=== PATIENT | male | born 2000 | race Caucasian/White ===

== ENCOUNTER 2023-10-28 14:18 | Emergency (ER) | payer OTHER, SELFPAY ==
[2023-10-28 14:25] VITALS: BP 131/81; PULSE 100; RESP 18; TEMP 37.2; O2SAT 100
--- NOTE | 2023-10-28 14:38 | ED.URI ---
HPI - URI/Sore Throat General Chief Complaint: Upper Respiratory Infection Stated Complaint: throat/sinus Time Seen by Provider: 10/28/23 14:39 Source: patient, RN notes reviewed and old records reviewed Mode of arrival: ambulatory Limitations: no limitations History of Present Illness HPI Narrative: 23-year-old male who presents to [facility] with complaints of 1 week duration of sinus congestion,drainage, headache, some ear pressure with increased symptoms for the past 2 days. Patient reports that he now also has sore throat, fatigue and has body ache. Patient reports that he has used Mira Loma Pot, Vicks vapor Rub and also has been taking Ibuprofen. Patient reports that he has had low grade fevers. MD elicited complaint: sore throat, rhinorrhea, nasal congestion, sinus pain and other (headaches) Pertinent past history: sinusitis Severity: moderate Pain scale (0-10): 6 Treatments prior to arrival: ibuprofen and other (Mira Loma Pot and Vicks Vapor Rub) Related Data Home Medications Medication Instructions Recorded Confirmed bupropion HCl 150 mg 24 hr tablet, 150 mg PO DAILY 10/28/23 10/28/23 extended release escitalopram oxalate 10 mg tablet 10 mg PO DAILY 10/28/23 10/28/23 Allergies Allergy/AdvReac Type Severity Reaction Status Date / Time No Known Allergies Allergy Verified 10/28/23 15:01 Review of Systems Review of Systems: CONSTITUTIONAL: Reports malaise, chills, sweats, or fever. EYES: Denies visual changes, redness, or discharge. ENT: Reports rhinorrhea, congestion, sinus pain, otalgia and sore throat. CARDIOVASCULAR: Denies chest pain, palpitations, or edema. RESPIRATORY: Reports no acute cough.? Denies dyspnea. GASTROINTESTINAL: Denies abdominal pain, nausea, vomiting, diarrhea SKIN: Denies rash or itching. MUSCULOSKELETAL:Reports myalgia. NEUROLOGIC: Reports headache. All systems reviewed & are unremarkable except as noted in HPI and below PMFSH Past Medical History Medical History (Updated 10/29/23 @ 22:06 by Laura Sanchez NP) Anxiety OCD (obsessive compulsive disorder) Sinus problem Social History Social History (Updated 10/29/23 @ 22:07 by Laura Sanchez NP) Smoking status: Never smoker Alcohol intake: current Alcohol use details: social Substance use type: does not use Occupation/Education: student Gender identity (if verbalized by the patient): Male Comments At time of signature, agree with nursing past medical, surgical, social and family history. There is no relevant family history pertinent to the presenting complaint Exam Narrative: GENERAL: Well-appearing, well-nourished, and in no acute distress. HEAD: Normocephalic EYES: PERRLA, conjunctivae clear ENT: Nares clear, turbinates edematous and erythematous, yellow with blood streaks in discharge, sinus pressure and headache. Mucous membranes moist. TM pearly galarza with dull light reflex bilaterally; no tragal tenderness. Oropharynx erythematous without lesions. Tonsils not enlarged and without exudate, no drooling, no hoarseness, no trismus, uvula midline.post nasal drainage. NECK: Supple. No lymphadenopathy CHEST: Clear to auscultation, breath sounds equal. No wheezing, rhonchi, rales, or stridor. No respiratory distress, speaks in full sentences.SAO2 100% on room air HEART: Regular rate and rhythm. No murmur heard. SKIN: Warm, dry, no rash. NEURO: Alert and oriented x3. PSYCH: Normal mood and affect Course Course Emergency Course: Patient is aware of diagnosis, understands and agrees to treatment plan.? Anticipatory guidance given.? Patient agrees to follow-up as directed and is aware of reasons to seek care at the emergency department. Portions of this record may have been created with voice recognition software Level of Care: Express Care Visit Vital Signs Vital signs: Vital Signs Temperature 37.2 C 10/28/23 14:25 Pulse Rate 100 10/28/23 14:25 Respirat
== END 2023-10-28 15:30 | disposition home or self-care (01) ==
PROVIDERS: Emergency Provider Registered Nurse
DX: J01.40 Acute pansinusitis, unspecified (principal); Z20.822 Contact with and (suspected) exposure to COVID-19; F41.9 Anxiety disorder, unspecified
CPT/HCPCS: 87081; 87426; 87804; 87880; 99213; G0463

== ENCOUNTER 2023-12-13 16:16 | Emergency (ER) | payer OTHER, SELFPAY ==
--- NOTE | ~2023-12-13 | XR_ITS ---
EXAMINATION: XR elbow RT min 3V DATE: 12/13/2023 16:38 INDICATION: Fall. TECHNIQUE: 3 views of right elbow were obtained. COMPARISON: None. FINDINGS: Bone alignment is normal. No fracture. Joint spaces are normal. There is no elbow joint eff usion. IMPRESSION: 1. No fracture. Reviewed, dictated and finalized at location A. IMPRESSION: 1. No fracture.
--- NOTE | ~2023-12-13 | XR_ITS ---
XR wrist RT min 3V 12/13/2023 16:38 Indication: Right wrist pain after fall Procedure: 4 views right wrist Comparison: No prior studies for comparison. Findings: There is a nondisplaced distal metaphyseal fracture of the radius without definite intra-ar ticular extension. No significant soft tissue abnormality. No foreign bodies. Impression: 1: Nondisplaced extra-articular fracture distal aspect of the radius at the metaphysis. Reviewed, dictated and finalized at location A. Impression: 1: Nondisplaced extra-articular fracture distal aspect of the radius at the met aphysis.
[2023-12-13 17:01] VITALS: BP 117/83; PULSE 76; RESP 16; TEMP 36.3; O2SAT 97
--- NOTE | 2023-12-13 17:10 | ED.UPPEXIN ---
HPI - Extremity Injury (Upper) General Chief Complaint: Extremity Injury, Upper Stated Complaint: broke my wrist Time Seen by Provider: 12/13/23 16:20 History of Present Illness HPI narrative: 23-year-old male presents to the emergency room for evaluation of right wrist pain status post skateboarding injury. Patient states that he was skateboarding through a wet spot where he slipped off a skateboard fell backwards on an outstretched hand. Patient complaining of pain to his right wrist is worse with movement. Patient states he took ibuprofen with no symptoms. No prior injuries to the right wrist Related Data Home Medications Medication Instructions Recorded Confirmed bupropion HCl 150 mg 24 hr tablet, 150 mg PO DAILY 10/28/23 10/28/23 extended release escitalopram oxalate 10 mg tablet 10 mg PO DAILY 10/28/23 10/28/23 Allergies Allergy/AdvReac Type Severity Reaction Status Date / Time No Known Allergies Allergy Verified 12/13/23 16:17 Review of Systems Review of Systems: CONSTITUTIONAL: Denies fever, chills, or sweats. EYES: Denies visual changes, redness, or discharge. ENT: Denies rhinorrhea, congestion, sore throat, or otalgia. CARDIOVASCULAR: Denies chest pain, palpitations, or edema. RESPIRATORY: Denies cough or dyspnea. GASTROINTESTINAL: Denies abdominal pain, nausea, vomiting, or diarrhea. GENITOURINARY: Denies dysuria or hematuria. SKIN: Denies rash or itching. MUSCULOSKELETAL: Reports right wrist pain NEUROLOGIC: Denies headache, numbness, dizziness, or weakness. PSYCHIATRIC: Denies anxiety or depression. PMFSH Past Medical History Medical History Anxiety OCD (obsessive compulsive disorder) Sinus problem Social History Social History Smoking status: Never smoker Alcohol intake: current Alcohol use details: social Substance use type: does not use Occupation/Education: student Gender identity (if verbalized by the patient): Male Exam Narrative: GENERAL: Well-appearing, well-nourished, no physical limitations, and in no acute distress. HEAD: Normocephalic, atraumatic. EYES: Conjunctivae normal, PERRLA and EOMI. CHEST: Clear to auscultation. No respiratory distress. No wheezes rales or rhonchi. No tenderness. HEART: Regular rate and rhythm. No murmur heard. Normal peripheral pulses. BACK: No cervical/thoracic/lumbar tenderness, step-offs, bony abnormality; FROM EXTREMITIES: Right wrist: obvious bony tenderness to distal radius with localized swelling and ecchymosis. + snuffbox tenderness. LROM of radiocarpal joint. No forearm or elbow tenderness. Neurovascular is intact distally SKIN: Warm, dry, no rash. No noted wounds NEURO: No focal deficits. Alert and oriented x3. MAEW. CN's II-XI intact bilaterally, normal gait PSYCH: Cooperative. Normal mood and affect. Course Vital Signs Vital signs: Vital Signs Temperature 36.3 C L 12/13/23 17:01 Pulse Rate 76 12/13/23 17:01 Respiratory Rate 16 12/13/23 17:01 Blood Pressure 117/83 12/13/23 17:01 Pulse Oximetry 97 12/13/23 17:01 Temperature 36.3 C L 12/13/23 17:01 Pulse Rate 76 12/13/23 17:01 Respiratory Rate 16 12/13/23 17:01 Blood Pressure 117/83 12/13/23 17:01 Pulse Oximetry 97 12/13/23 17:01 MDM - Extremity Injury (Upper) MDM Narrative Medical decision making narrative: Right wrist film shows a nondisplaced extra-articular fracture of the distal aspect of the radius. Patient was splinted with a sugar-tong splint placed into a sling. Will have a follow-up with Orthopedics. Discharge Plan Discharge Clinical Impression: Distal radial fracture Qualifiers: Encounter type: initial encounter Fracture type: closed Fracture morphology: other extra-articular Laterality: right Qualified Code(s): S52.551A - Other extraarticular fracture of lower end of right radius, initial en
== END 2023-12-13 17:56 | disposition home or self-care (01) ==
LOC: ANHED 17:28
PROVIDERS: Emergency Provider Nurse Practitioner Family
DX: S52.551A Other extraarticular fracture of lower end of right radius, initial encounter for closed fracture (principal); F41.9 Anxiety disorder, unspecified; F42.9 Obsessive-compulsive disorder, unspecified; V00.131A Fall from skateboard, initial encounter; Y93.51 Activity, roller skating (inline) and skateboarding
CPT/HCPCS: 29125; 73080; 73110; 99284; A4565

== ENCOUNTER 2025-05-05 18:51 | Emergency (ER) | payer OTHER, SELFPAY ==
[2025-05-05 19:07] VITALS: BP 119/66; PULSE 52; RESP 16; TEMP 36.6; O2SAT 100
--- NOTE | 2025-05-05 19:19 | ED.SKABFB ---
HPI - Skin/Abscess/Foreign Bdy General Chief complaint: Skin/Abscess/Foreign Body Stated complaint: Rash Time Seen by Provider: 05/05/25 19:19 Source: patient, RN notes reviewed and old records reviewed Mode of arrival: ambulatory Limitations: no limitations History of Present Illness HPI narrative: 24-year-old male presents to the [facility] after getting his haircut. Multiple thumbs to the scalp, to circular lesions to the right scalp, raised edges. Patient reports that his being slightly itchy. Noticed today after getting a haircut Related Data Home Medications ?Medication ?Instructions ?Recorded ?Confirmed ?Last Taken ?Type bupropion HCl 150 mg 24 hr tablet, 150 mg PO DAILY 10/28/23 10/28/23 Unknown History extended release escitalopram oxalate 10 mg tablet 10 mg PO DAILY 10/28/23 10/28/23 Unknown History Allergies Allergy/AdvReac Type Severity Reaction Status Date / Time No Known Allergies Allergy Verified 12/13/23 16:17 Review of Systems Review of Systems: All systems reviewed & are unremarkable except as noted in HPI and below Constitutional: Constitutional: Reports no additional constitutional complaints ENT: Reports system reviewed and no additional complaints, except as documented Cardiovascular: Cardiovascular: Reports no additional cardiovascular complaints, Denies chest pain and Denies dyspnea Respiratory: Respiratory: Reports no additional respiratory complaints, Denies chest congestion, Denies cough and Denies dyspnea Musculoskeletal: Musculoskeletal: Reports no additional musculoskeletal complaints Integumentary/Breasts: Skin/Breast: Reports as per HPI PMF Past Medical History Medical History Sinus problem OCD (obsessive compulsive disorder) Anxiety Social History Social History Smoking status: Never smoker Alcohol intake: current Alcohol use details: social Substance use type: does not use Occupation/Education: student Gender identity (if verbalized by the patient): Male Comments At the time of my signature, I reviewed and agree with the nursing past medical, surgical, social, and family history. There is no relevant family history pertinent to the patient complaint. Exam Const: General: cooperative, healthy appearing, comfortable, no acute distress, well developed, alert and well nourished Nutritional Appearance: well nourished Orientation/consciousness: patient oriented x3 Limitations: no limitations HENMT: Head: normal to inspection Eyes: General: appearance normal, both eyes and all related structures Alignment and Position: alignment normal Neck: Neck: normal visual inspection, full ROM, no lymphadenopathy and no meningeal signs Chest: Chest palpation & inspection: normal inspection of the chest Resp: Effort & Inspection: normal respiratory effort and able to speak in complete sentences Cardio: Rate: regular rate Skin: General skin exam: normal color and no rashes or lesions noted Other: Red fascicular raised areas to posterior scalp, right posterior scalp 2 areas of concern that are red raised edges, consistent with possible ringworm. Neuro: General: patient oriented x3, gait normal, moves all extremities and no meningeal signs Cognition (Neuro): normal cognition Speech: normal speech Gait exam (Neuro): Normal gait present Extrem: General: normal to inspection, full ROM, capillary refill normal and normal gait Psych: Appearance: grossly normal and well kempt Mental Status: mental status grossly normal Speech and movement: Normal speech and movement present and Clear speech present Affect: normal affect Attitude: cooperative Course Course Level of Care: Express Care Visit Vital Signs Vital signs: Vital Signs Temperature 97.9 F 05/05/25 19:07 Pulse Rate 52 L 05/05/25 19:07 Respiratory Rate 16 05/05/25 19:07 Blood Pressure 119/66 05/05/25 19:07 Pulse Oximetry 100 05/05/25 19:07 Temperature 97.9 F 05/05/25 19:07 Pulse Rate 52 L 05/05/25 19:07 Respiratory Rate 16 05/05/25 19:07 Blood Pressure 119/66 05/05/25 19:07 Pulse Oximetry 100 05/05/25 19:07 Reviewed MDM - Skin/Abscess/Foreign Bdy MDM Narrative Medical decision making narrative: Patient sitting in exam room. Patient is nontoxic, vitals are stable. Patient presents scalp issues after getting a haircut. Has multiple raised areas, most consistent with folliculitis, will cover with Cleocin. Also concern for a fungal infection, will have him she improved with ketoconazole and Selsun Blue. Stressed the importance of following up with primary care provider which he verbalized understanding. Differential Diagnosis Differential diagnosis: Likely abscess of skin or subcutaneous tissue, viral exanthem, dermatophytosis, urticaria, herpes zoster, allergic reaction to drug, cellulitis, eczema, insect bites, impetigo and contact dermatitis Critical Care Time Critical Care Time Critical Care Time: No Discharge Plan Discharge Clinical Impression: Ringworm, Folliculitis Patient Disposition: Home Condition: Stable Instructions: Folliculitis (ED), Skin Yeast Infection (ED) Additional Instructions: Wash your hair daily with Selsun Blue Apply the creams as prescribed If it is not clearing please follow-up with your primary care provider within 2 weeks to have it rechecked Patient Language: Albanian Prescriptions: New clindamycin phosphate 1 % solution 1 applic topical BID Qty: 60 0RF ketoconazole 2 % shampoo 1 applic topical 3XW Qty: 120 0RF No Action escitalopram oxalate 10 mg tablet 10 mg PO DAILY bupropion HCl 150 mg tablet extended release 24 hr 150 mg PO DAILY amoxicillin-pot clavulanate 875-125 mg tablet 1 tablet PO Q12H Qty: 20 0RF Rx Instructions: take with food and take all of prescription hydrocodone-acetaminophen 5-325 mg tablet 1 tablet PO Q8H PRN (Reason: pain) Qty: 20 0RF Follow-up/Referrals: PHYSICIAN,REFINERY PIPELINE OPERATOR [Primary Care Provider, Internal Medicine] Stand Alone Forms: Work/School Release IP Time of Disposition: 19:27
== END 2025-05-05 19:30 | disposition home or self-care (01) ==
PROVIDERS: Emergency Provider Nurse Practitioner
DX: B35.9 Dermatophytosis, unspecified (principal); L73.9 Follicular disorder, unspecified; F41.9 Anxiety disorder, unspecified; F42.9 Obsessive-compulsive disorder, unspecified
CPT/HCPCS: 99213; G0463